=== PATIENT | male | born 1955 | race Caucasian/White ===

== ENCOUNTER → 2017-01-19 | Outpatient (CLI) | payer MEDICARE, OTHER ==
[~2017-01-19] MED LIST: ASPI81TA90 PO; BYST10TA PO; ESCI20TA PO; MULTTAB4 PO; OMEP20CA3 PO; VITA-121 PO; ocean spray; tylenol PO
[2017-01-19 07:22] LABS: MEAN CORPUSCULAR HEMOGLOBIN 31.6 pg (27.0-33.0); MEAN CORPUSCULAR VOLUME 93.1 fl (80.0-96.0); RED CELL DISTRIBUTION WIDTH 12.7 % (11.5-14.5); WHITE BLOOD COUNT 9.3 K/mm3 (4.0-10.0)
[2017-01-19 07:58] LABS: ALBUMIN 3.5 GM/DL (3.2-5.2); ALBUMIN/GLOBULIN RATIO 1.03 (1.00-1.93); ALKALINE PHOSPHATASE 82 U/L (45-117); ALT/SGPT 49 U/L (12-78); ANION GAP 5 MEQ/L (8-16); AST/SGOT 26 U/L (15-37); BILIRUBIN,TOTAL 0.6 MG/DL (0.2-1.0); BLOOD UREA NITROGEN 13 MG/DL (7-18); CALCIUM LEVEL 8.4 MG/DL (8.8-10.2); CARBON DIOXIDE LEVEL 30 MEQ/L (21-32); CHLORIDE LEVEL 104 MEQ/L (98-107); CHOLESTEROL LEVEL 183 MG/DL (<200); CREATININE FOR GFR 1.08 MG/DL (0.70-1.30); GLOMERULAR FILTRATION RATE > 60.0 (>49); GLUCOSE, FASTING 116 MG/DL (80-110); POTASSIUM SERUM 4.2 MEQ/L (3.5-5.1); SODIUM LEVEL 139 MEQ/L (136-145); TOTAL PROTEIN 6.9 GM/DL (6.4-8.2); TRIGLYCERIDES LEVEL 239 MG/DL (<150)
--- NOTE | 2017-01-19 09:50 | REP ---
CHEST X-RAY: Two views. HISTORY: Hypertension. Fatigue. BPH. COMPARISON STUDY: April 10, 2015. FINDINGS: There is a small zone of linear fibrosis in the left base. The lung richardson are otherwise clear. Pleural angles are sharp. Heart size is normal. Pulmonary vasculature is not increased. No significant bony abnormality. IMPRESSION: No active cardiopulmonary disease. Minimal linear fibrosis left base. Signed by Andrew Trejo MD 01/19/2017 12:17 P
--- NOTE | 2017-01-19 12:54 | ECGEPIP ---
Stationary ECG Study 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
== END ==
LOC: M LAB 06:47
PROVIDERS: ATTEND Family Medicine
DX: I10 Essential (primary) hypertension (principal); R53.83 Other fatigue; N40.1 Benign prostatic hyperplasia with lower urinary tract symptoms

== ENCOUNTER → 2017-01-26 | Outpatient (CLI) | payer MEDICARE, OTHER ==
[~2017-01-26] MED LIST changes: +E-Z-GAS II EFFERVESCENT PACKET (SODIUM BICARB./CITRIC ACID/SIMETHICONE) As Ordered ONE; +E-Z-HD 98% w/w 340GM SUSP BTL As Ordered ONE; +E-Z-PAQUE 96% w/w SUSP 176GM BTL As Ordered ONE
--- NOTE | 2017-01-26 17:49 | REP ---
UPPER GI, AIR CONTRAST: The procedure was performed under the direct supervision of Dr. Trejo. The images were reviewed with Dr. Trejo. The stream control officer film shows no organomegaly or pathological masses. The intestinal gas pattern is nonspecific. There are prostate seeds identified. There are surgical clips and bowel sutures in the right abdomen consistent with the patient's history of colon resection. Liquid barium and gas-producing granules were given in the erect position as well as liquid barium in the prone oblique position in order to perform a double-contrast upper GI examination. The oral and pharyngeal stage of deglutition are unremarkable. Esophageal transport is prompt and efficient and there is no esophagitis, stricture, mucosal ring, or hiatal hernia. Gastroesophageal reflux is not demonstrated on this examination. The stomach jamison are normally outlined. The rugal folds are smooth and regular. There is no gastritis, neoplasm, or ulcer disease. The duodenal jamison are normally outlined. The mucosal folds are smooth and regular. There is no duodenitis, pancreatitis, peptic ulcer disease, or neoplasm. The visualized portion of the proximal small bowel appears normal in course and caliber. IMPRESSION: Essentially unremarkable double contrast upper GI examination. 2 minutes and 13 seconds of fluoroscopic time was utilized for this procedure. Reviewed by RYLEE Odell 01/27/2017 10:21 AEdited and Signed by Andrew Trejo MD 01/27/2017 05:05 P
== END ==
LOC: M RAD 08:44
PROVIDERS: ATTEND Family Medicine
DX: R10.9 Unspecified abdominal pain (principal)

== ENCOUNTER 2017-05-25 11:15 | Outpatient (CLI) | payer MEDICARE, OTHER ==
[~2017-05-25] VITALS: Ht 180.3 cm; Wt 113.4 kg
[~2017-05-25 11:15] MED LIST changes: +DOXA1TAB71 PO; -E-Z-GAS II EFFERVESCENT PACKET (SODIUM BICARB./CITRIC ACID/SIMETHICONE) As Ordered ONE; -E-Z-HD 98% w/w 340GM SUSP BTL As Ordered ONE; -E-Z-PAQUE 96% w/w SUSP 176GM BTL As Ordered ONE; +NS 1,000 ML IV ONE; +PANT40TA2 PO
--- NOTE | 2017-05-25 13:33 | ROOR ---
Patient Name: Jackson Dean Procedure Date: 05/25/2017 1:16 PM Date of : 1955 Age: 61 Room: [facility] Gender: Male Note Status: Finalized Procedure: Upper Endoscopy + Biopsies Indications: Heartburn, Exclusion of Newell's esophagus, Follow-up of Newell's esophagus Providers: Bandar Castillo MD Referring MD: MARCK JONES MD Requesting Provider: Medicines: Monitored Anesthesia Care Complications: No immediate complications. Procedure: Pre-Anesthesia Assessment: - The heart rate, respiratory rate, oxygen saturations, blood pressure, adequacy of pulmonary ventilation, and response to care were monitored throughout the procedure. The Endoscope was introduced through the mouth, and advanced to the second part of duodenum. The upper GI endoscopy was accomplished without difficulty. The patient tolerated the procedure well. Findings: The Z-line was irregular and was found 40 cm from the incisors. A small hiatal hernia was present. Multiple biopsies were obtained with cold forceps for evaluation to rule out Newell's Esophagus at the gastroesophageal junction. No other significant abnormalities were identified in a careful examination of the stomach. The exam of the duodenum was otherwise normal. Impression: - Z-line irregular, 40 cm from the incisors. - Small hiatal hernia. - Biopsy performed in the gastroesophageal junction. - The examination was otherwise normal. Recommendation: - Patient has a contact number available for emergencies. The signs and symptoms of potential delayed complications were discussed with the patient. Return to normal activities tomorrow. Written discharge instructions were provided to the patient. - High fiber diet. - Discharge patient to home. - Follow an antireflux regimen. - Continue present medications. - Await pathology results. - Telephone GI clinic for pathology results in 1 week. - Return to referring physician. - The findings and recommendations were discussed with the patient's family. Bandar Castillo MD Bandar Castillo MD 05/25/2017 1:33:42 PM This report has been signed electronically. Number of Addenda: 0 Note Initiated On: 05/25/2017 1:16 PM Estimated Blood Loss: Estimated blood loss: none.
--- NOTE | 2017-05-25 13:50 | ROOR ---
Patient Name: Jackson Dean Procedure Date: 05/25/2017 1:17 PM Date of : 1955 Age: 61 Room: [facility] Gender: Male Note Status: Finalized Procedure: Total Colonoscopy to Anastomosis + Biopsy Polypectomy Indications: High risk colon cancer surveillance: Personal history of colonic polyps Providers: Bandar Castillo MD Referring MD: MARCK JONES MD Requesting Provider: Medicines: Monitored Anesthesia Care Complications: No immediate complications. Procedure: Pre-Anesthesia Assessment: - The heart rate, respiratory rate, oxygen saturations, blood pressure, adequacy of pulmonary ventilation, and response to care were monitored throughout the procedure. The Colonoscope was introduced through the anus and advanced to the ileocolonic anastomosis. The colonoscopy was performed without difficulty. The patient tolerated the procedure well. The quality of the bowel preparation was good. Findings: The perianal and digital rectal examinations were normal. Non-bleeding internal hemorrhoids were found during retroflexion. The hemorrhoids were small and Grade I (internal hemorrhoids that do not prolapse). A small polyp was found at 60 cm proximal to the anus. The polyp was sessile. The polyp was removed with a jumbo cold forceps. Resection and retrieval were complete. There was evidence of a prior end-to-side ileo-colonic anastomosis at the hepatic flexure. This was patent and was characterized by healthy appearing mucosa. The anastomosis was traversed. The exam was otherwise without abnormality. Impression: - Non-bleeding internal hemorrhoids. - One small polyp at 60 cm proximal to the anus, removed with a jumbo cold forceps. Resected and retrieved. - Patent end-to-side ileo-colonic anastomosis, characterized by healthy appearing mucosa. - The examination was otherwise normal. Recommendation: - Patient has a contact number available for emergencies. The signs and symptoms of potential delayed complications were discussed with the patient. Return to normal activities tomorrow. Written discharge instructions were provided to the patient. - Discharge patient to home. - Continue present medications. - Await pathology results. - Telephone GI clinic for pathology results in 1 week. - Repeat colonoscopy in 5 years for surveillance based on pathology results. - Return to referring physician. - The findings and recommendations were discussed with the patient's family. Bandar Castillo MD Bandar Castillo MD 05/25/2017 1:49:45 PM This report has been signed electronically. Number of Addenda: 0 Note Initiated On: 05/25/2017 1:17 PM Estimated Blood Loss: Estimated blood loss: none.
[2017-05-25 14:20] VITALS: BP 154/82
== END 2017-05-25 14:31 | disposition home or self-care (01) ==
LOC: M OPP 11:15
PROVIDERS: ATTEND Internal Medicine Gastroenterology
DX: Z12.11 Encounter for screening for malignant neoplasm of colon (principal); D37.4 Neoplasm of uncertain behavior of colon; Z86.010 Personal history of colon polyps; D12.4 Benign neoplasm of descending colon; K64.0 First degree hemorrhoids; Z98.0 Intestinal bypass and anastomosis status; R12 Heartburn; K22.70 Barrett's esophagus without dysplasia; K22.8 Other specified diseases of esophagus; K44.9 Diaphragmatic hernia without obstruction or gangrene; K29.70 Gastritis, unspecified, without bleeding; I10 Essential (primary) hypertension; Z87.19 Personal history of other diseases of the digestive system; M19.90 Unspecified osteoarthritis, unspecified site; M54.2 Cervicalgia; M54.89 Other dorsalgia; F41.9 Anxiety disorder, unspecified; Z85.46 Personal history of malignant neoplasm of prostate; Z92.3 Personal history of irradiation; Z92.21 Personal history of antineoplastic chemotherapy; G47.30 Sleep apnea, unspecified; R06.83 Snoring; R33.9 Retention of urine, unspecified; Z88.0 Allergy status to penicillin; Z79.899 Other long term (current) drug therapy

== ENCOUNTER → 2017-12-31 | Outpatient (CLI) | payer MEDICARE, OTHER ==
[2017-12-31 16:44] LABS: BASO # 0.1 10^3/uL (0.0-0.2); BASO % 0.8 % (0.0-1.0); EOS # 0.3 10^3/uL (0.0-0.50); EOS % 3.5 % (0.0-3.0); HEMATOCRIT 49.1 % (42.0-52.0); HEMOGLOBIN 16.8 g/dl (13.5-17.5); IMMATURE GRANULOCYTE % 0.2 % (0-3.0); LYMPH # 3.1 10^3/uL (1.5-4.5); LYMPH % 34.9 % (24.0-44.0); MEAN CORPUSCULAR HEMOGLOBIN 30.3 pg (27.0-33.0); MEAN CORPUSCULAR HGB CONC 34.2 g/dl (32.0-36.5); MEAN CORPUSCULAR VOLUME 88.5 fl (80.0-96.0); MONO # 0.7 10^3/uL (0.0-0.8); MONO % 7.4 % (0.0-5.0); NEUTROPHILS # 4.7 10^3/uL (1.8-7.7); NEUTROPHILS % 53.2 % (36.0-66.0); PLATELET COUNT, AUTOMATED 273 10^3/uL (150-450); RED BLOOD COUNT 5.55 10^6/uL (4.30-6.10); RED CELL DISTRIBUTION WIDTH 13.1 % (11.5-14.5); WHITE BLOOD COUNT 8.9 10^3/uL (4.0-10.0)
[2017-12-31 17:28] LABS: ALBUMIN/GLOBULIN RATIO 1.14 (1.00-1.93); ALKALINE PHOSPHATASE 85 U/L (45-117); ALT/SGPT 54 U/L (12-78); ANION GAP 6 MEQ/L (8-16); AST/SGOT 29 U/L (7-37); BILIRUBIN,TOTAL 0.5 MG/DL (0.2-1.0); BLOOD UREA NITROGEN 14 MG/DL (7-18); CALCIUM LEVEL 9.4 MG/DL (8.8-10.2); CARBON DIOXIDE LEVEL 28 MEQ/L (21-32); CHLORIDE LEVEL 106 MEQ/L (98-107); CREATININE FOR GFR 0.96 MG/DL (0.70-1.30); GLOMERULAR FILTRATION RATE > 60.0 (>49); GLUCOSE, FASTING 97 MG/DL (70-100); POTASSIUM SERUM 5.1 MEQ/L (3.5-5.1); SODIUM LEVEL 140 MEQ/L (136-145); TOTAL PROTEIN 7.5 GM/DL (6.4-8.2)
== END ==
LOC: M WUC 14:06
DX: R53.83 Other fatigue (principal)
CPT/HCPCS: 84443

== ENCOUNTER → 2018-04-05 | Outpatient (CLI) | payer MEDICARE, OTHER ==
[2018-04-05 08:57] LABS: HEMATOCRIT 48.8 % (42.0-52.0); HEMOGLOBIN 16.7 g/dl (13.5-17.5); MEAN CORPUSCULAR HEMOGLOBIN 30.9 pg (27.0-33.0); MEAN CORPUSCULAR HGB CONC 34.2 g/dl (32.0-36.5); MEAN CORPUSCULAR VOLUME 90.2 fl (80.0-96.0); PLATELET COUNT, AUTOMATED 263 10^3/uL (150-450); RED BLOOD COUNT 5.41 10^6/uL (4.30-6.10); RED CELL DISTRIBUTION WIDTH 13.2 % (11.5-14.5); WHITE BLOOD COUNT 8.5 10^3/uL (4.0-10.0)
[2018-04-05 09:28] LABS: TOTAL 25(OH) VITAMIN D 33.7 NG/ML (30.0-100.0)
[2018-04-05 09:29] LABS: ALBUMIN 3.6 GM/DL (3.2-5.2); ALBUMIN/GLOBULIN RATIO 1.06 (1.00-1.93); ALKALINE PHOSPHATASE 72 U/L (45-117); ALT/SGPT 48 U/L (12-78); ANION GAP 6 MEQ/L (8-16); AST/SGOT 26 U/L (7-37); BILIRUBIN,TOTAL 0.6 MG/DL (0.2-1.0); BLOOD UREA NITROGEN 14 MG/DL (7-18); CALCIUM LEVEL 8.6 MG/DL (8.8-10.2); CARBON DIOXIDE LEVEL 30 MEQ/L (21-32); CHLORIDE LEVEL 107 MEQ/L (98-107); CHOLESTEROL LEVEL 182 MG/DL (<200); CREATININE FOR GFR 0.89 MG/DL (0.70-1.30); GLOMERULAR FILTRATION RATE > 60.0 (>49); GLUCOSE, FASTING 107 MG/DL (70-100); HDL CHOLESTEROL 52 MG/DL (>40); LDL CHOLESTEROL 107.6 MG/DL (<100); NON-HDL-C 130 MG/DL; POTASSIUM SERUM 4.6 MEQ/L (3.5-5.1); PROSTATIC SPECIFIC AG MONITOR < 0.01 NG/ML (< 4.0); SODIUM LEVEL 143 MEQ/L (136-145); TESTOSTERONE 405 NG/DL (241-827); TRIGLYCERIDES LEVEL 112 MG/DL (<150)
[2018-04-05 09:44] LABS: ESTIMATED AVERAGE GLUCOSE 108 MG/DL (60-110); HEMOGLOBIN A1c 5.4 %
== END ==
LOC: M WUC 08:05
DX: D64.9 Anemia, unspecified (principal); R53.83 Other fatigue; E03.9 Hypothyroidism, unspecified
CPT/HCPCS: 84403

== ENCOUNTER → 2018-09-13 | Outpatient (CLI) | payer MEDICARE, OTHER ==
[~2018-09-13] MED LIST changes: -DOXA1TAB71 PO; +DOXA2TAB3 PO; -NS 1,000 ML IV ONE; -PANT40TA2 PO; +PANT40TA3 PO
--- NOTE | 2018-09-13 09:40 | REP ---
LUMBAR SPINE, FIVE VIEWS: HISTORY: Back pain. There is no acute fracture or subluxation. The L3-4 through L5-S1 intervertebral discs are decreased in height. Vacuum phenomenon is present at the L4-5 level. These findings are consistent with disc degeneration. Osteophytes are present on L1-5. There is narrowing of the left L5-S1 facet joint. IMPRESSION: Degenerative change as described above. Electronically Signed by Chuy Sanchez MD 09/13/2018 09:53 A
--- NOTE | 2018-09-13 09:44 | REP ---
RIGHT KNEE, FIVE VIEWS: HISTORY: Pain. There is no acute fracture or dislocation. There is moderate narrowing of the lateral knee joint space. There is mild narrowing of the medial knee joint space and minimal narrowing of the patellofemoral joint space. Osteophytes are present on the femur, tibia and patella. A suprapatellar joint effusion is present. IMPRESSION: Degenerative change as described above. Electronically Signed by Chuy Sanchez MD 09/13/2018 09:52 A
== END ==
LOC: M WUC 08:53
PROVIDERS: ATTEND Physician Assistant
DX: M54.5 Low back pain (principal); M25.561 Pain in right knee

== ENCOUNTER → 2018-09-16 | Outpatient (REF) | payer MEDICARE, OTHER ==
[2018-09-16 15:58] LABS: BASO # 0.1 10^3/uL (0.0-0.2); BASO % 0.5 % (0.0-1.0); EOS # 0.3 10^3/uL (0.0-0.50); EOS % 2.6 % (0.0-3.0); HEMATOCRIT 51.1 % (42.0-52.0); HEMOGLOBIN 17.2 g/dl (13.5-17.5); LYMPH # 2.5 10^3/uL (1.5-4.5); MEAN CORPUSCULAR HEMOGLOBIN 30.3 pg (27.0-33.0); MEAN CORPUSCULAR HGB CONC 33.7 g/dl (32.0-36.5); MONO # 0.6 10^3/uL (0.0-0.8); MONO % 6.6 % (0.0-5.0); NEUTROPHILS # 6.1 10^3/uL (1.8-7.7); NEUTROPHILS % 64.1 % (36.0-66.0); PLATELET COUNT, AUTOMATED 358 10^3/uL (150-450); RED BLOOD COUNT 5.68 10^6/uL (4.30-6.10); WHITE BLOOD COUNT 9.5 10^3/uL (4.0-10.0)
[2018-09-16 16:18] LABS: RHEUMATOID FACTOR QUANT < 10.0 IU/ML (<15.0); URIC ACID 5.6 MG/DL (3.5-7.2)
[2018-09-16 16:26] LABS: ERYTHROCYTE SEDIMENTATION RATE 16 mm/hr (0-20)
[2018-09-19 00:06] LABS: ANTINUCLEAR ANTIBODIES DIRECT Negative (Negative); Lyme Disease IgG/IgM Antibodie <0.91 ISR (0.00-0.90); Lyme Disease IgM Ab Quantitati <0.80 index (0.00-0.79)
== END ==
LOC: M LABDRAW1 15:28
PROVIDERS: ATTEND Physician Assistant Surgical
DX: M17.11 Unilateral primary osteoarthritis, right knee (principal)

== ENCOUNTER → 2018-09-23 | Outpatient (CLI) | payer MEDICARE, OTHER ==
[2018-09-23 13:41] LABS: BASO # 0.1 10^3/uL (0.0-0.2); BASO % 0.6 % (0.0-1.0); EOS # 0.3 10^3/uL (0.0-0.50); EOS % 2.9 % (0.0-3.0); HEMATOCRIT 47.6 % (42.0-52.0); HEMOGLOBIN 15.9 g/dl (13.5-17.5); LYMPH # 2.4 10^3/uL (1.5-4.5); LYMPH % 19.9 % (24.0-44.0); MEAN CORPUSCULAR HEMOGLOBIN 29.6 pg (27.0-33.0); MEAN CORPUSCULAR HGB CONC 33.4 g/dl (32.0-36.5); MEAN CORPUSCULAR VOLUME 88.6 fl (80.0-96.0); MONO # 0.8 10^3/uL (0.0-0.8); MONO % 6.9 % (0.0-5.0); NEUTROPHILS # 8.2 10^3/uL (1.8-7.7); NEUTROPHILS % 69.4 % (36.0-66.0); PLATELET COUNT, AUTOMATED 369 10^3/uL (150-450); RED BLOOD COUNT 5.37 10^6/uL (4.30-6.10); WHITE BLOOD COUNT 11.9 10^3/uL (4.0-10.0)
[2018-09-23 13:48] LABS: ALBUMIN 3.5 GM/DL (3.2-5.2); ALT/SGPT 46 U/L (12-78); BILIRUBIN,TOTAL 0.4 MG/DL (0.2-1.0); BLOOD UREA NITROGEN 11 MG/DL (7-18); C REACTIVE PROTEIN QUANTITATIV 3.36 MG/DL (0.00-0.30); CARBON DIOXIDE LEVEL 27 MEQ/L (21-32); CHLORIDE LEVEL 100 MEQ/L (98-107); CREATININE FOR GFR 0.82 MG/DL (0.70-1.30); GLOMERULAR FILTRATION RATE > 60.0 (>49); GLUCOSE, FASTING 98 MG/DL (70-100); POTASSIUM SERUM 4.7 MEQ/L (3.5-5.1); RHEUMATOID FACTOR QUANT < 10.0 IU/ML (<15.0); SODIUM LEVEL 137 MEQ/L (136-145); TOTAL PROTEIN 6.9 GM/DL (6.4-8.2)
[2018-09-23 14:09] LABS: ERYTHROCYTE SEDIMENTATION RATE 32 mm/hr (0-20)
[2018-09-25 00:06] LABS: Lyme Disease IgG/IgM Antibodie <0.91 ISR (0.00-0.90); Lyme Disease IgM Ab Quantitati <0.80 index (0.00-0.79)
== END ==
LOC: M WUC 11:12
PROVIDERS: ATTEND Physician Assistant
DX: M25.519 Pain in unspecified shoulder (principal)

== ENCOUNTER → 2018-10-14 | Outpatient (REF) | payer MEDICARE, OTHER | LOC: M LABDRAW1 15:36 | PROVIDERS: ATTEND Physician Assistant Surgical | DX: M23.241 Derangement of anterior horn of lateral meniscus due to old tear or injury, right knee (principal) ==

== ENCOUNTER → 2018-10-18 | Outpatient (REF) | payer MEDICARE, OTHER ==
[2018-10-18 19:10] LABS: BLOOD UREA NITROGEN 15 MG/DL (7-18); CREATININE FOR GFR 0.82 MG/DL (0.70-1.30); GLOMERULAR FILTRATION RATE > 60.0 (>49)
== END ==
LOC: M LABDRAW1 12:33
PROVIDERS: ATTEND Physician Assistant Medical
DX: M25.511 Pain in right shoulder (principal)

== ENCOUNTER → 2018-10-27 | Outpatient (CLI) | payer MEDICARE, OTHER ==
[2018-10-27 08:27] LABS: HEMATOCRIT 42.5 % (42.0-52.0); HEMOGLOBIN 14.4 g/dl (13.5-17.5); MEAN CORPUSCULAR HEMOGLOBIN 29.3 pg (27.0-33.0); MEAN CORPUSCULAR HGB CONC 33.9 g/dl (32.0-36.5); MEAN CORPUSCULAR VOLUME 86.4 fl (80.0-96.0); PLATELET COUNT, AUTOMATED 404 10^3/uL (150-450); RED BLOOD COUNT 4.92 10^6/uL (4.30-6.10); WHITE BLOOD COUNT 13.6 10^3/uL (4.0-10.0)
[2018-10-27 08:52] LABS: ERYTHROCYTE SEDIMENTATION RATE 53 mm/hr (0-20)
[2018-10-27 09:00] LABS: HEMOGLOBIN A1c 6.4 %
[2018-10-27 09:07] LABS: ALBUMIN 3.1 GM/DL (3.2-5.2); ALT/SGPT 62 U/L (12-78); BILIRUBIN,TOTAL 0.6 MG/DL (0.2-1.0); BLOOD UREA NITROGEN 15 MG/DL (7-18); C REACTIVE PROTEIN QUANTITATIV 8.86 MG/DL (0.00-0.30); CALCIUM LEVEL 8.9 MG/DL (8.8-10.2); CARBON DIOXIDE LEVEL 29 MEQ/L (21-32); CHLORIDE LEVEL 100 MEQ/L (98-107); CHOLESTEROL LEVEL 133 MG/DL (<200); CREATININE FOR GFR 0.88 MG/DL (0.70-1.30); GLOMERULAR FILTRATION RATE > 60.0 (>49); GLUCOSE, FASTING 132 MG/DL (70-100); HDL CHOLESTEROL 48 MG/DL (>40); LDL CHOLESTEROL 73 MG/DL (<100); NON-HDL-C 85 MG/DL; POTASSIUM SERUM 4.7 MEQ/L (3.5-5.1); PROSTATIC SPECIFIC AG MONITOR < 0.01 NG/ML (< 4.00); RHEUMATOID FACTOR QUANT < 10.0 IU/ML (<15.0); SODIUM LEVEL 135 MEQ/L (136-145); TOTAL PROTEIN 6.8 GM/DL (6.4-8.2); TRIGLYCERIDES LEVEL 61 MG/DL (<150); URIC ACID 5.4 MG/DL (3.5-7.2)
--- NOTE | 2018-10-27 09:51 | REP ---
Chest two views HISTORY: Hypertension Comparison: 01/19/2017 There is elevation of the hemidiaphragm. Linear density is present in the left lower lobe consistent with scar. The right lung is clear. The heart is normal in size. The pulmonary vasculature is normal in appearance. The bony structure is intact. IMPRESSION: No acute disease. Electronically Signed by Chuy Sanchez MD 10/27/2018 09:42 A
--- NOTE | 2018-10-27 22:28 | ECGEPIP ---
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 Electronically Signed On 10-27-2018 22:27:54 EST by Jluis Sauer
[2018-10-29 00:08] LABS: ANTINUCLEAR ANTIBODIES DIRECT Negative (Negative); Lyme Disease IgG/IgM Antibodie <0.91 ISR (0.00-0.90); Lyme Disease IgM Ab Quantitati <0.80 index (0.00-0.79)
== END ==
LOC: M LAB 07:19
PROVIDERS: ATTEND Family Medicine
DX: I10 Essential (primary) hypertension (principal); R53.83 Other fatigue; N40.0 Benign prostatic hyperplasia without lower urinary tract symptoms; E03.9 Hypothyroidism, unspecified

== ENCOUNTER → 2018-11-15 | Outpatient (REF) | payer MEDICARE, OTHER | LOC: M LABDRAW1 15:28 | PROVIDERS: ATTEND Physician Assistant | DX: M47.896 Other spondylosis, lumbar region (principal) ==

== ENCOUNTER → 2018-11-29 | Outpatient (REF) | payer MEDICARE, OTHER | LOC: M LABDRAW1 12:40 | PROVIDERS: ATTEND Physician Assistant Surgical | DX: M17.11 Unilateral primary osteoarthritis, right knee (principal) ==

== ENCOUNTER 2020-03-27 09:58 | Emergency (ER) | payer MEDICARE, OTHER ==
[~2020-03-27] VITALS: Ht 177.8 cm; Wt 118.2 kg
[~2020-03-27 09:58] MED LIST changes: +PANT40TA29 PO; -PANT40TA3 PO
[2020-03-27] MEDS ORDERED: MULTLIQ7 (10:08)
[2020-03-27] MEDS ORDERED: B VITAMIN (10:08)
[2020-03-27 11:25] LABS: BASO % 0.6 % (0.0-1.0); EOS # 0.2 10^3/uL (0.0-0.5); EOS % 2.2 % (0.0-3.0); HEMATOCRIT 51.2 % (42.0-52.0); HEMOGLOBIN 17.3 g/dl (13.5-17.5); LYMPH # 1.1 10^3/uL (1.5-5.0); LYMPH % 16.8 % (24.0-44.0); MEAN CORPUSCULAR HEMOGLOBIN 30.6 pg (27.0-33.0); MEAN CORPUSCULAR HGB CONC 33.8 g/dl (32.0-36.5); MEAN CORPUSCULAR VOLUME 90.5 fl (80.0-96.0); MONO # 0.3 10^3/uL (0.0-0.8); NEUTROPHILS # 5.1 10^3/uL (1.5-8.5); NEUTROPHILS % 75.1 % (36.0-66.0); PLATELET COUNT, AUTOMATED 192 10^3/uL (150-450); RED BLOOD COUNT 5.66 10^6/uL (4.30-6.10); WHITE BLOOD COUNT 6.8 10^3/uL (4.0-10.0)
[2020-03-27 12:32] LABS: ALBUMIN 3.7 GM/DL (3.2-5.2); ALT/SGPT 63 U/L (12-78); BILIRUBIN,DIRECT 0.2 MG/DL (0.0-0.2); BILIRUBIN,TOTAL 0.6 MG/DL (0.2-1.0); CK-MB VALUE MASS 3.7 NG/ML (<3.6); CPK CREATINE PHOSPHOKINASE 262 U/L (39-308); LIPASE 196 U/L (73-393); MB/CK RELATIVE INDEX 1.41 (< OR =4); TOTAL PROTEIN 7.9 GM/DL (6.4-8.2); TROPONIN I < 0.02 NG/ML (< 0.10)
--- NOTE | 2020-03-27 13:11 | REP ---
Clinical: Right upper quadrant pain. Technique: Real time lorenzo scale ultrasound examination using curved array transducer. Comparison: 01/01/2016. Findings: Liver includes 1.3 x 1.0 x 1.1 cm benign appearing cyst in the right lobe unchanged from prior examination along with increased parenchymal echotexture suggesting fatty infiltration. The pancreas is incompletely evaluated due to interposed bowel gas but visualized portions appear normal. The gallbladder is unremarkable. No biliary ductal dilatation is appreciated and the common bile duct measures 5 mm diameter. Right kidney is normal in reniform shape without hydronephrosis and measures 12.9 x 6.2 x 5.7 cm. No ascites. Impression: 1. Fatty infiltration to the liver and stable small benign hepatic cyst. Electronically Signed by Moustapha Joshi MD 03/27/2020 01:02 P
[2020-03-27] MEDS ORDERED: LISI10TA4 PO (14:09)
[2020-03-27] MEDS ORDERED: lisinopriL 10 MG TAB PO ONE (14:15)
[2020-03-27 14:27] VITALS: BP 177/91
[2020-03-27 14:36] VITALS: BP 177/91
--- NOTE | 2020-03-27 17:52 | ECGEPIP ---
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
[2020-03-28 18:08] LABS: Lyme Disease IgG/IgM Antibodie <0.91 ISR (0.00-0.90); Lyme Disease IgM Ab Quantitati <0.80 index (0.00-0.79)
== END 2020-03-27 14:38 | disposition home or self-care (01) ==
LOC: M ED 09:58
DX: I10 Essential (primary) hypertension (principal); R53.81 Other malaise; K22.70 Barrett's esophagus without dysplasia; Z79.899 Other long term (current) drug therapy; Z88.0 Allergy status to penicillin

== ENCOUNTER → 2020-04-12 | Outpatient (CLI) | payer MEDICARE, OTHER ==
[~2020-04-12] MED LIST changes: +B VITAMIN; +LISI10TA4 PO; +MULTLIQ7
--- NOTE | 2020-05-30 14:25 | ECGEPIP ---
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
[2020-06-07 14:52] LABS: HEMATOCRIT 48.7 % (42.0-52.0); HEMOGLOBIN 16.5 g/dl (13.5-17.5); MEAN CORPUSCULAR HEMOGLOBIN 30.9 pg (27.0-33.0); MEAN CORPUSCULAR HGB CONC 33.9 g/dl (32.0-36.5); MEAN CORPUSCULAR VOLUME 91.2 fl (80.0-96.0); PLATELET COUNT, AUTOMATED 388 10^3/uL (150-450); RED BLOOD COUNT 5.34 10^6/uL (4.30-6.10)
[2020-06-09 15:48] LABS: ALBUMIN 3.6 GM/DL (3.2-5.2); ALT/SGPT 89 U/L (12-78); BILIRUBIN,TOTAL 0.6 MG/DL (0.2-1.0); BLOOD UREA NITROGEN 16 MG/DL (7-18); CALCIUM LEVEL 9.1 MG/DL (8.8-10.2); CARBON DIOXIDE LEVEL 29 MEQ/L (21-32); CHLORIDE LEVEL 107 MEQ/L (98-107); CHOLESTEROL LEVEL 171 MG/DL (<200); CHOLESTEROL RISK RATIO 3.638 (<5); GLOMERULAR FILTRATION RATE > 60.0 (>49); GLUCOSE, FASTING 102 MG/DL (70-100); HDL CHOLESTEROL 47 MG/DL (>40); HEMOGLOBIN A1c 5.7 %; LDL CHOLESTEROL 93 MG/DL (<100); NON-HDL-C 124 MG/DL; POTASSIUM SERUM 4.6 MEQ/L (3.5-5.1); SODIUM LEVEL 139 MEQ/L (136-145); TOTAL PROTEIN 7.3 GM/DL (6.4-8.2); TRIGLYCERIDES LEVEL 155 MG/DL (<150)
== END ==
LOC: M LAB 07:20
PROVIDERS: ATTEND Family Medicine
DX: I10 Essential (primary) hypertension (principal); R53.83 Other fatigue; E03.9 Hypothyroidism, unspecified; N40.0 Benign prostatic hyperplasia without lower urinary tract symptoms; Z79.899 Other long term (current) drug therapy
CPT/HCPCS: 36415; 71046; 80053; 80061; 83036; 84403; 84443; 85027; 93005; G0103

== ENCOUNTER → 2020-10-05 | Outpatient (CLI) | payer MEDICARE, OTHER ==
[~2020-10-05] MED LIST changes: +CENT1TAB2 PO; +ESOM1CAP5 PO; +SUCR1TA PO; +VITA-243 PO; +VITAD400CA PO; +ZINC1TAB2 PO
== END ==
LOC: M LABSMTC 11:48
PROVIDERS: ATTEND Anesthesiology
DX: Z01.812 Encounter for preprocedural laboratory examination (principal); Z20.822 Contact with and (suspected) exposure to COVID-19

== ENCOUNTER 2020-10-10 07:22 | Day surgery (SDC) | payer MEDICARE, OTHER ==
[~2020-10-10] VITALS: Ht 177.8 cm; Wt 126.6 kg
[~2020-10-10 07:22] MED LIST changes: +NS 1,000 ML IV ONE
--- OUTSIDE RECORDS SUMMARY | 2020-10-10 07:27 | CCD | Continuity of Care Document ---
Author Author Jackson CASTILLO M.D. Organization Unknown Address [address] [place] [address] Phone [phone] Care Team Providers Care Mixing Tumbler Operator Name Role Phone Erika Weinstein M.D. AUTM [phone] Problems Active Problems Provider Date Newell's esophagus Bandar Castillo M.D. 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 Onset: 07/15/2013 Right upper quadrant pain Bandar Castillo M.D. Onset: Gastrointestinal tract finding Bandar Castillo M.D. Onse t: 05/20/2013 Essential hypertension Bandar Castillo M.D. Onset: 05/20 Social History Type Date Description Comments Sex Unknown ETOH Use Consumes 7 beers per week Tobacco Use Start: Unknown Patient has never smoked Allergies, Adverse Reactions, Alerts Active Allergies Reaction Severity Comments Date Penicillin 05/20/2013 Medications Active Medications SIG Qnty Indications Ordering Provide r Date Sutab [id number] Tablets as directed 1box Bandar Castillo M.D. 09/27/2020 Esomeprazole Magnesium 40mg Capsul es DR Take One Capsule By Mouth Every Day Unknown Sucralfate 1gm Tablets Take One Tablet By Mouth Three Times A Day Unknown Immunizations Description No Information Available Vital Signs Date Vital Result Comment 09/27/2020 3:08pm Height 71 inches 5'11" Weight 280.00 lb BP Systolic 138 mmHg BP Diastolic 86 mmHg Heart Rate 64 /min BMI (Body Mass Index) 39.0 kg/m2 Weight 127.008 kg Body Temperature 97.3 F 05/05/2017 2:51pm Height 71 inches 5'11" Weight 254.00 lb BP Systolic 160 mmHg BP Diastolic 97 mmHg Heart Rate 90 /min BMI (Body Mass Index) 35.4 kg/m2 Weight 115.214 kg Results Description No Information Available Procedures Description No Information Available Medical Devices Description No Information Available Encounters Type Date Location Provider Dx Diagnosis Office Visit 09/27/2020 3:00p Main Office Bandar Castillo M.D. Z 86.010 Personal history of colonic polyps R12 Heartburn Assessments Date Code Description Provider 09/27/2020 Z86.010 Personal history of colonic poly ps Bandar Castillo M.D. 09/27/2020 R12 Heartburn Bandar álvarez M.D. Plan of Treatment Future Appointment(s):* 10/10/2020 11:30 am - Bandar Castillo M.D. at Main Office 09/27/2020 - Bandar Castillo M.D.* Z86.010 Personal history of colonic polyps* Comments:* 64 yo wm who presents for a colonoscopy/egd. Pt had colonic polyps, and heartburn. Last scope was in 2017. No c/o abdominal pain, weight loss, change in bowel habits, or rectal bleeding. No family h/o colon cancer. No h/o chest pain, or sob. Plan:1. Colonoscopy + egd.2. Informed consent. * R12 Heartburn* Comments:* Schedule EGD.Informed consent given. Functional Status Description No Information Available Mental Status Description No Information Available Referrals Description No Information Available
--- OUTSIDE RECORDS SUMMARY | 2020-10-10 07:27 | CCD ---
Author Author [facility] Organization [facility] Address Unknown Phone Unavailable Care Team Providers Care Mail Processing Associate Name Role Phone Ilia Castillo MD Unavailable Unavailable Ilia Castillo MD Unavailable Unavailable Ilia Castillo MD Unavailable Unavailable Ilia Castillo MD Unavailable Unavailable Ilia Castillo MD Unavailable Unavailable Ilia Castillo MD Unavailable Unavailable Ilia Castillo MD Unavailable Unavailable Ilia Castillo MD Unavailable Unavailable Ilia Castillo MD Unavailable Unavailable Ilia Castillo MD Unavailable Unavailable Ilia Castillo MD Unavailable Unavailable Ilia Castillo MD Unavailable Unavailable Ilia Castillo MD Unavailable Unavailable Ilia Castillo MD Unavailable Unavailable Ilia Castillo MD Unavailable Unavailable Ilia Castillo MD Unavailable Unavailable Ilia Castillo MD Unavailable Unavailable Ilia Castillo MD Unavailable Unavailable Ilia Castillo MD Unavailable Unavailable Ilia Castillo MD Unavailable Unavailable Ilia Castillo MD Unavailable Unavailable Ilia Castillo MD Unavailable Unavailable Ilia Castillo MD Unavailable Unavailable Ilia Castillo MD Unavailable Unavailable Ilia Castillo MD Unavailable Unavailable Ilia Castillo MD Unavailable Unavailable Ilia Castillo MD Unavailable Unavailable Ilia Castillo MD Unavailable Unavailable Ilia Castillo MD Unavailable Unavailable Ilia Castillo MD Unavailable Unavailable Jonathan, S Bandar MD Unavailable Unavailable Jonathan, S Bandar MD Unavailable Unavailable Jonathan, S Bandar MD Unavailable Unavailable Jonathan, S Bandar MD Unavailable Unavailable Jonathan, S Bandar MD Unavailable Unavailable Jonathan, S Bandar MD Unavailable Unavailable Jonathan, S Bandar MD Unavailable Unavailable Jonathan, S Bandar MD Unavailable Unavailable Jonathan, S Bandar MD Unavailable Unavailable Jonathan, S Bandar MD Unavailable Unavailable Jonathan, S Bandar MD Unavailable Unavailable Jonathan, S Bandar MD Unavailable Unavailable Jonathan, S Bandar MD Unavailable Unavailable Jonathan, S Bandar MD Unavailable Unavailable Jonathan, S Bandar MD Unavailable Unavailable Jonathan, S Bandar MD Unavailable Unavailable Jonathan, S Bandar MD Unavailable Unavailable Jonathan, S Bandar MD Unavailable Unavailable Jonathan, S Bandar MD Unavailable Unavailable Re-disclosure Warning The records that you are about to access may contain information from federally-assisted alcohol or drug abuse programs. If such information is present, then the following federally mandated warning applies: This information has been disclosed to you from records protected by federal confidentiality rules (42 CFR part 2). The federal rules prohibit you from making any further disclosure of this information unless further disclosure is expressly permitted by the written consent of the person to whom it pertains or as otherwise permitted by 42 CFR part 2. A general authorization for the release of medical or other information is NOT sufficient for this purpose. The Federal rules restrict any use of the information to criminally investigate or prosecute any alcohol or drug abuse patient.The records that you are about to access may contain highly sensitive health information, the redisclosure of which is protected by Article 27-F of the [facility] Public Health law. If you continue you may have access to information: Regarding HIV / AIDS; Provided by facilities licensed or operated by the [facility] Office of Mental Health; or Provided by the [facility] Office for People With Developmental Disabilities. If such information is present, then the following [facility] mandated warning applies: This information has been disclosed to you from confidential records which are protected by state law. State law prohibits you from making any further disclosure of this information without the specific written consent of the person to whom it pertains, or as otherwise permitted by law. Any unauthorized further disclosure in violation of state law may result in a fine or mcc sentence or both. A general authorization for the release of medical or other information is NOT sufficient authorization for further disc losure. Family History Family Member Name Family Member Gender Family Member Status Date o f Status Description Data Source(s) Unknown Male Problem [facility] ([facility]) Unknown Unknown Problem [facility] ([facility]) parents side Unknown Unknown Problem [facility] ([facility]) Encounters Encounter Providers Location Date Indications Data Source(s ) Outpatient Attender: Bandar Castillo MD Main Office 09/27/2020 02:00:00 PM EST [facility] ([facility]) Medications Medication Brand Name Start Date Product Form Dose Route Admi nistrative Instructions Pharmacy Instructions Status Indications Reaction Description Data Source(s) 1.479-0.188 gram 10/03/2020 12:00:00 AM EST tablet 24 USE DIRECTED USE DIRECTED SOLD: 10/03/2020 [facility] Sutab Sutab 09/27/2020 12:00:00 AM EST active [facility] ([facility]) 10 mg 04/26/2020 12:00:00 AM EDT tablet 30 TAKE ONE TABLET BY MOUTH EVERY DAY TAKE ONE TABLET BY MOUTH EVERY DAY SOLD: 04/27/2020 [facility] 10 mg 04/26/2020 12:00:00 AM EDT tablet 30 TAKE ONE TABLET BY MOUTH EVERY DAY TAKE ONE TABLET BY MOUTH EVERY DAY SOLD: 05/28/2020 [facility] 10 mg 04/26/2020 12:00:00 AM EDT tablet 30 TAKE ONE TABLET BY MOUTH EVERY DAY TAKE ONE TABLET BY MOUTH EVERY DAY SOLD: 06/30/2020 [facility] 100 mg 04/12/2020 12:00:00 AM EDT tablet 10 TAKE BY MOUTH DIRECTED MAXIMUM DAILY DOSE = 1 TABLET TAKE BY MOUTH DIRECTED MAXIMUM DAILY DOSE = 1 TABLET SOLD: 04/13/2020 [facility] Esomeprazole 40 MG Delayed Release Oral Capsule ESOMEPRAZOLE MAGNESIUM 04/11/2020 12:00:00 AM EDT capsule,delayed release(DR/EC) 30 TAKE ONE CAPSULE BY MOUTH EVERY DAY TAKE ONE CAPSULE BY MOUTH EVERY DAY SOLD: 04/12/2020 [facility] 50 mcg/actuation 04/11/2020 12:00:00 AM EDT spray,suspension 16 SPRAY ONE SPRAY IN EACH NOSTRIL TWICE A DAY SPRAY ONE SPRAY IN EACH NOSTRIL TWICE A DAY SOLD: 05/28/2020 [facility] Esomeprazole 40 MG Delayed Release Oral Capsule ESOMEPRAZOLE MAGNESIUM 04/11/2020 12:00:00 AM EDT capsule,delayed release(DR/EC) 30 TAKE ONE CAPSULE BY MOUTH EVERY DAY TAKE ONE CAPSULE BY MOUTH EVERY DAY SOLD: 06/30/2020 [facility] 1 gram 04/11/2020 12:00:00 AM EDT tablet 90 TAKE ONE TABLET BY MOUTH THREE TIMES A DAY TAKE ONE TABLET BY MOUTH THREE TIMES A DAY SOLD: 06/15/2020 [facility] 50 mcg/actuation 04/11/2020 12:00:00 AM EDT spray,suspension 16 SPRAY ONE SPRAY IN EACH NOSTRIL TWICE A DAY SPRAY ONE SPRAY IN EACH NOSTRIL TWICE A DAY SOLD: 04/12/2020 [facility] Esomeprazole 40 MG Delayed Release Oral Capsule ESOMEPRAZOLE MAGNESIUM 04/11/2020 12:00:00 AM EDT capsule,delayed release(DR/EC) 30 TAKE ONE CAPSULE BY MOUTH EVERY DAY TAKE ONE CAPSULE BY MOUTH EVERY DAY SOLD: 05/28/2020 [facility] 1 gram 04/11/2020 12:00:00 AM EDT tablet 90 TAKE ONE TABLET BY MOUTH THREE TIMES A DAY TAKE ONE TABLET BY MOUTH THREE TIMES A DAY SOLD: 04/12/2020 [facility] 10 mg 03/27/2020 12:00:00 AM EDT tablet 30 TAKE ONE TABLET BY MOUTH EVERY DAY TAKE ONE TABLET BY MOUTH EVERY DAY SOLD: 03/27/2020 [facility] Insurance Providers Payer name Policy type / Coverage type Policy ID Covered green party ID Covered green party's relationship to sepulveda Policy Sepulveda Plan Information R [facility] [id number] SP [id number] MEDICARE [id number] SP [id number] Umr (pr) Medigap Part B [id number] Self [id number] Medicare Dme Supplies Medigap Part B [id number] Self [id number] [place] [id number] Self [id number] Umr (pr) Medigap Part B [id number] Self [id number] Medicare Dme Supplies Medigap Part B [id number] Self [id number] [place] Primary [id number] Self [id number] Umr (pr) Medigap Part B [id number] Self [id number] Medicare Dme Supplies Medigap Part B [id number] Self [id number] [place] [id number] Self [id number] Umr (pr) Medigap Part B [id number] Self [id number] Medicare Dme Supplies Medigap Part B [id number] Self [id number] [place] [id number] Self [id number] Umr (pr) Medigap Part B [id number] Self [id number] Medicare Dme Supplies Medigap Part B [id number] Self [id number] [place] Primary [id number] Self [id number] Umr (pr) Medigap Part B [id number] Self [id number] Medicare Dme Supplies Medigap Part B [id number] Self [id number] [place] Primary [id number] Self [id number] UMR [facility] [id number] SP [id number] Umr (pr) Medigap Part B [id number] Self [id number] Medicare Dme Supplies Medigap Part B [id number] Self [id number] [place] Primary [id number] Self [id number] Umr (pr) Medigap Part B [id number] Self [id number] Medicare Dme Supplies Medigap Part B [id number] Self [id number] [place] Primary [id number] Self [id number] Umr (pr) Medigap Part B [id number] Self [id number] Medicare Dme Supplies Medigap Part B [id number] Self [id number] [place] Primary [id number] Self [id number] Umr (pr) Medigap Part B [id number] Self [id number] Medicare Dme Supplies Medigap Part B [id number] Self [id number] [place] Primary [id number] Self [id number] MEDICARE [id number] SP [id number] Umr (pr) Medigap Part B [id number] Self [id number] Medicare Dme Supplies Medigap Part B [id number] Self [id number] [place] Primary [id number] Self [id number] Umr (pr) Medigap Part B [id number] Self [id number] Medicare Dme Supplies Medigap Part B [id number] Self [id number] [place] Primary [id number] Self [id number] UMR O [id number] S [id number] MEDICARE C [id number] S [id number] Umr/Uhc/[employer] Medigap Part B [id number] Self [id number] Medicare [place] Gov't Serv[place] Medicare Primary [id number] Self [id number] [place] Medigap Part B [id number] Self [id number] Umr (pr) Medigap Part B [id number] Self [id number] [place] Primary [id number] Self [id number] Umr/[place] Medigap Part B [id number] Self [id number] [place] Gov[place] Serv[place] Medicare Primary [id number] Self [id number] Umr/[place]c/[employer] Medigap Part B [id number] Self [id number] [place] Gov[place] Medicare Primary [id number] Self [id number] MEDICARE [id number] SP [id number] A Medicare [place] Gov[place] Medicare Primary [id number] Self [id number] [place] Medigap Part B [id number] Self [id number] [employer] [id number] SP [id number] Medicare [place] Gov't Serv[place] Medicare Primary [id number] Self [id number] [place] Medigap Part B [id number] Self [id number] [place] Primary [id number] Self [id number] [place] [id number] SP [id number] Medicare [place] Gov't Serv[place] Medicare Primary [id number] Self [id number] MEDICARE [id number] SP [id number] A [place] Medigap Part B Self [place] Gov't Serv[place] Medicare Primary Self MEDICARE A [id number] Self [id number] A [employer] U [id number] Self [id number] MEDICARE P [id number] S [id number] A [id number] B [id number] Problems, Conditions, and Diagnoses Code Display Name Description Problem Type Effective Dates Data Source(s) [id number] Newell's esophagus Newell's esophagus Problem 0 09/27/2020 12:00:00 AM EST [facility] ([facility]) Results ID Date Data Source [id number] 10/05/2020 12:00:00 PM EST [facility] Name Value Range Interpretation Code Description Data Arabella rce(s) Supporting Document(s) SARS coronavirus 2 RNA Not Detected [facility] [place] This lab was ordered by [facility] and reported by [facility]. Procedure Vital Signs ID Date Data Source UNK Name Value Range Interpretation Code Description Data Source(s) Body temperature 97.3 [degF] 97.3 [degF] [facility] ([facility]) Body weight 127.008 kg 127.008 kg [facility] ([facility]) Body mass index (BMI) [Ratio] 39.0 kg/m2 39.0 k g/m2 [facility] ([facility]) Heart rate 64 /min 64 /min [facility] ([facility]) Diastolic blood pressure 86 mm[Hg] 86 mm[Hg] [facility] ([facility]) Systolic blood pressure 138 mm[Hg] 138 mm[Hg] M EDENT ([facility]) Body weight 280.00 [lb_av] 280.00 [lb_av] MEDEN T ([facility]) Body height 71 [in_i] 71 [in_i] [facility] 5'11"
[2020-10-10] MEDS ORDERED: LIDOCAINE 2% 100MG/5ML SDV (FOR ANES.) As Ordered ONE (08:54)
[2020-10-10] MEDS ORDERED: fentaNYL 100 MCG/2 ML INJECTION (J3010) As Ordered ONE (08:54)
[2020-10-10] MEDS ORDERED: propofoL 200 MG/20 ML VIAL As Ordered ONE ×2 (08:54→09:19)
--- NOTE | 2020-10-10 09:11 | ROOR ---
Patient Name: Jackson Dean Procedure Date: 10/10/2020 8:54 AM Date of : 1955 Age: 64 Room: [facility] Gender: Male Note Status: Finalized Procedure: Upper Endoscopy + Biopsies Indications: Heartburn, Exclusion of Newell's esophagus Providers: Bandar Castillo MD Referring MD: MARCK JONES MD Requesting Provider: Medicines: Monitored Anesthesia Care Complications: No immediate complications. Procedure: Pre-Anesthesia Assessment: - The heart rate, respiratory rate, oxygen saturations, blood pressure, adequacy of pulmonary ventilation, and response to care were monitored throughout the procedure. The Endoscope was introduced through the mouth, and advanced to the second part of duodenum. The upper GI endoscopy was accomplished without difficulty. The patient tolerated the procedure well. Findings: The Z-line was irregular and was found 40 cm from the incisors. Multiple biopsies were obtained with cold forceps for evaluation to rule out Newell's Esophagus randomly at the gastroesophageal junction. Localized moderate inflammation characterized by congestion (edema), erosions and erythema was found on the greater curvature of the stomach. Biopsies were taken with a cold forceps for Helicobacter pylori testing. The exam of the duodenum was otherwise normal. Impression: - Z-line irregular, 40 cm from the incisors. - Mucosal changes suspicious for gastritis. Biopsied. - Multiple biopsies were obtained at the gastroesophageal junction. - The examination was otherwise normal. Recommendation: - Patient has a contact number available for emergencies. The signs and symptoms of potential delayed complications were discussed with the patient. Return to normal activities tomorrow. Written discharge instructions were provided to the patient. - High fiber diet. - Discharge patient to home. - Follow an antireflux regimen. - Continue present medications. - Await pathology results. - Telephone GI clinic for pathology results in 1 week. - Return to referring physician. - The findings and recommendations were discussed with the patient. Procedure Code(s): --- Professional --- 90236, Esophagogastroduodenoscopy, flexible, transoral; with biopsy, single or multiple Diagnosis Code(s): --- Professional --- K22.8, Other specified diseases of esophagus K31.89, Other diseases of stomach and duodenum R12, Heartburn CPT copyright 2019 [employer]. All rights reserved. The codes documented in this report are preliminary and upon flight crew time clerk review may be revised to meet current compliance requirements. Bandar Castillo MD Bandar Castillo MD 10/10/2020 9:11:10 AM Electronically signed by Bandar Castillo MD Number of Addenda: 0 Note Initiated On: 10/10/2020 8:54 AM Estimated Blood Loss: Estimated blood loss: none.
--- NOTE | 2020-10-10 09:25 | ROOR ---
Patient Name: Jackson Daen Procedure Date: 10/10/2020 8:54 AM Date of : 1955 Age: 64 Room: [facility] Gender: Male Note Status: Finalized Procedure: Colonoscopy to Anastomosis Indications: High risk colon cancer surveillance: Personal history of colonic polyps, Last colonoscopy: 2016 Providers: Bandar Castillo MD Referring MD: MARCK JONES MD Requesting Provider: Medicines: Monitored Anesthesia Care Complications: No immediate complications. Procedure: Pre-Anesthesia Assessment: - The heart rate, respiratory rate, oxygen saturations, blood pressure, adequacy of pulmonary ventilation, and response to care were monitored throughout the procedure. The Colonoscope was introduced through the anus and advanced to the cecum, identified by appendiceal orifice and ileocecal valve. The colonoscopy was performed without difficulty. The patient tolerated the procedure well. The quality of the bowel preparation was excellent. Findings: The perianal and digital rectal examinations were normal. Non-bleeding internal hemorrhoids were found during retroflexion. The hemorrhoids were small and Grade I (internal hemorrhoids that do not prolapse). Multiple small and large-mouthed diverticula were found in the recto-sigmoid colon, sigmoid colon and descending colon. There was evidence of a prior end-to-side colo-colonic anastomosis at the hepatic flexure. This was patent and was characterized by healthy appearing mucosa. The exam was otherwise without abnormality on direct and retroflexion views. Impression: - Non-bleeding internal hemorrhoids. - Diverticulosis in the recto-sigmoid colon, in the sigmoid colon and in the descending colon. - Patent end-to-side colo-colonic anastomosis, characterized by healthy appearing mucosa. - The examination was otherwise normal on direct and retroflexion views. - No specimens collected. - The examination was otherwise normal. Recommendation: - Patient has a contact number available for emergencies. The signs and symptoms of potential delayed complications were discussed with the patient. Return to normal activities tomorrow. Written discharge instructions were provided to the patient. - High fiber diet. - Discharge patient to home. - Continue present medications. - Repeat colonoscopy in 5 years for surveillance. - Return to referring physician. - The findings and recommendations were discussed with the patient. Procedure Code(s): --- Professional --- G0105, Colorectal cancer screening; colonoscopy on individual at high risk Diagnosis Code(s): --- Professional --- Z86.010, Personal history of colonic polyps K64.0, First degree hemorrhoids Z98.0, Intestinal bypass and anastomosis status K57.30, Diverticulosis of large intestine without perforation or abscess without bleeding CPT copyright 2019 [employer]. All rights reserved. The codes documented in this report are preliminary and upon corn picker review may be revised to meet current compliance requirements. Bandar Castillo MD Bandar Castillo MD 10/10/2020 9:25:09 AM Electronically signed by Bandar Castillo MD Number of Addenda: 0 Note Initiated On: 10/10/2020 8:54 AM Estimated Blood Loss: Estimated blood loss: none.
[2020-10-10 09:40] VITALS: BP 144/85
== END 2020-10-10 09:52 | disposition home or self-care (01) ==
LOC: M OPP 07:22
PROVIDERS: ATTEND Internal Medicine Gastroenterology
DX: Z12.11 Encounter for screening for malignant neoplasm of colon (principal); Z86.010 Personal history of colon polyps; R12 Heartburn; K64.0 First degree hemorrhoids; K57.30 Diverticulosis of large intestine without perforation or abscess without bleeding; Z98.0 Intestinal bypass and anastomosis status; D13.0 Benign neoplasm of esophagus; D13.1 Benign neoplasm of stomach; K22.8 Other specified diseases of esophagus; K31.89 Other diseases of stomach and duodenum; M19.90 Unspecified osteoarthritis, unspecified site; F41.9 Anxiety disorder, unspecified; F32.9 Major depressive disorder, single episode, unspecified; G47.30 Sleep apnea, unspecified; Z85.46 Personal history of malignant neoplasm of prostate; Z92.3 Personal history of irradiation; Z88.0 Allergy status to penicillin; Z79.899 Other long term (current) drug therapy
CPT/HCPCS: 43239; 88305; G0105; J3010

== ENCOUNTER 2021-08-12 07:08 | Outpatient (CLI) | payer MEDICARE, OTHER ==
[~2021-08-12] VITALS: Ht 180.3 cm; Wt 113.4 kg
[~2021-08-12 07:08] MED LIST changes: +ALBUTEROL 90 MCG/ACT 8GM HFA INHALER INH PRN; +ALBUTEROL SULFATE 2.5 MG/0.5 ML INH NEB SOLN INH PRN; +EPINEPHrine INJ 1 MG/ML 1ML AMP IM PRN; +LISI10TA22 PO; -LISI10TA4 PO; -NS 1,000 ML IV ONE; +NS 1,000 ML IV SCH; +diphenhydrAMINE 50MG/ML VIAL (J1200) IV PRN; +methylPREDNISolone 125MG 2ML VIAL IV PRN
[2021-08-12] MEDS ORDERED: CASIRIVIMAB (REGN10933) 600 MG, IMDEVIMAB (REGN10987) 600 MG in NS 250 ML IV ONE (08:00)
[2021-08-12 08:15] VITALS: BP 148/92
[2021-08-12 08:45] VITALS: BP 174/95
[2021-08-12 09:15] VITALS: BP 160/77
[2021-08-12 10:15] VITALS: BP 161/95
== END 2021-08-12 10:15 | disposition home or self-care (01) ==
LOC: M OPCLI4PR 07:08
PROVIDERS: ATTEND Family Medicine
DX: U07.1 COVID-19 (principal); Z88.0 Allergy status to penicillin

== ENCOUNTER → 2022-07-16 | Outpatient (CLI) | payer MEDICARE, OTHER ==
[~2022-07-16] MED LIST changes: -ALBUTEROL 90 MCG/ACT 8GM HFA INHALER INH PRN; -ALBUTEROL SULFATE 2.5 MG/0.5 ML INH NEB SOLN INH PRN; -EPINEPHrine INJ 1 MG/ML 1ML AMP IM PRN; -NS 1,000 ML IV SCH; -diphenhydrAMINE 50MG/ML VIAL (J1200) IV PRN; -methylPREDNISolone 125MG 2ML VIAL IV PRN
[2022-07-16 08:46] LABS: HEMOGLOBIN 16.9 g/dl (13.5-17.5); MEAN CORPUSCULAR HEMOGLOBIN 30.7 pg (27.0-33.0); MEAN CORPUSCULAR HGB CONC 32.5 g/dl (32.0-36.5); MEAN CORPUSCULAR VOLUME 94.5 fl (80.0-96.0); PLATELET COUNT, AUTOMATED 251 10^3/uL (150-450); WHITE BLOOD COUNT 8.6 10^3/uL (4.0-10.0)
[2022-07-16 09:43] LABS: ALBUMIN 3.8 GM/DL (3.2-5.2); ALT/SGPT 53 U/L (12-78); BILIRUBIN,TOTAL 0.7 MG/DL (0.2-1.0); BLOOD UREA NITROGEN 18 MG/DL (7-18); CARBON DIOXIDE LEVEL 29 MEQ/L (21-32); CHLORIDE LEVEL 105 MEQ/L (98-107); CHOLESTEROL LEVEL 177 MG/DL (<200); CREATININE FOR GFR 1.07 MG/DL (0.70-1.30); GLOMERULAR FILTRATION RATE > 60.0 (>49); GLUCOSE, FASTING 111 MG/DL (70-100); HDL CHOLESTEROL 56 MG/DL (>40); LDL CHOLESTEROL 92 MG/DL (<100); NON-HDL-C 121 MG/DL; POTASSIUM SERUM 4.6 MEQ/L (3.5-5.1); PROSTATIC SPECIFIC AG MONITOR < 0.01 NG/ML (< 4.00); SODIUM LEVEL 141 MEQ/L (136-145); TOTAL PROTEIN 7.2 GM/DL (6.4-8.2); TRIGLYCERIDES LEVEL 147 MG/DL (<150)
[2022-07-16 09:50] LABS: HEMOGLOBIN A1c 5.4 %
[2022-07-16 11:15] LABS: TOTAL 25(OH) VITAMIN D 52.3 NG/ML (30.0-100.0)
[2022-07-16 11:16] LABS: TESTOSTERONE 378 NG/DL (241-827)
== END ==
LOC: M EKG 07:20
PROVIDERS: ATTEND Family Medicine
DX: R53.83 Other fatigue (principal); I10 Essential (primary) hypertension; R97.20 Elevated prostate specific antigen [PSA]

== ENCOUNTER 2023-07-16 07:18 | Inpatient (IN) | payer MEDICARE, OTHER ==
[~2023-07-16] VITALS: Ht 180.3 cm; Wt 125.9 kg
[2023-07-16] VITALS (34 sets, daily range): BP systolic 135–184; BP diastolic 63–104; TEMP 98–98.4; O2SAT 82–98
[~2023-07-16 07:18] MED LIST changes: -DOXA2TAB3 PO; +DOXA2TAB61 PO
[2023-07-16 07:59] LABS: BASO # 0.1 10^3/uL (0.0-0.2); BASO % 0.8 % (0.0-1.0); EOS # 0.3 10^3/uL (0.0-0.5); EOS % 3.3 % (0.0-3.0); HEMATOCRIT 48.9 % (42.0-52.0); LYMPH # 2.6 10^3/uL (1.5-5.0); MEAN CORPUSCULAR HEMOGLOBIN 31.9 pg (27.0-33.0); MEAN CORPUSCULAR HGB CONC 34.8 g/dl (32.0-36.5); MEAN CORPUSCULAR VOLUME 91.7 fl (80.0-96.0); MONO # 0.7 10^3/uL (0.0-0.8); MONO % 7.2 % (2.0-8.0); NEUTROPHILS # 5.6 10^3/uL (1.5-8.5); NEUTROPHILS % 60.4 % (36.0-66.0); PLATELET COUNT, AUTOMATED 241 10^3/uL (150-450); RED BLOOD COUNT 5.33 10^6/uL (4.30-6.10); WHITE BLOOD COUNT 9.3 10^3/uL (4.0-10.0)
[2023-07-16] MEDS ORDERED: ISOVUE-370 76% 100ML VIAL As Ordered ONE (08:03)
[2023-07-16 08:10] LABS: INR 1.01
[2023-07-16] MEDS: LABETALOL 100MG/20ML VIAL IV PRN ×2 (08:10→08:45)
[2023-07-16 08:11] LABS: PARTIAL THROMBOPLASTIN TIME 26.2 SECONDS (24.8-34.2)
[2023-07-16 08:32] LABS: CK-MB VALUE MASS 4.7 NG/ML (<3.6)
[2023-07-16 08:34] LABS: MB/CK RELATIVE INDEX 2.19 (< OR =4)
[2023-07-16] MEDS ORDERED: TENECTEPLASE 50 MG KIT (TNKase) IVP ONE ×2 (08:45→08:50)
[2023-07-16] MEDS ORDERED: LABETALOL HCL 200 MG in NS 160 ML IV SCH (08:50)
[2023-07-16] MEDS ORDERED: NO ITAB PO (09:02)
[2023-07-16] MEDS ORDERED: B COCAP4 PO (09:02)
[2023-07-16] MEDS ORDERED: ZINC220CA PO (09:02)
[2023-07-16 09:03] LABS: RSV AMPLIFICATION NEGATIVE (NEGATIVE)
[2023-07-16] MEDS ORDERED: HOME MED LIST COMPLETE! XX SCH (09:05)
[2023-07-16] MEDS: LABETALOL HCL 200 MG in NS 160 ML IV SCH ×2 (09:13→10:30)
[2023-07-16] MEDS ORDERED: ALBUTEROL SULFATE 2.5MG/0.5ML INH NEB SOLN NEB PRN (09:25)
[2023-07-16 09:33] LABS: CK-MB VALUE MASS 4.5 NG/ML (<3.6)
[2023-07-16 09:34] LABS: MB/CK RELATIVE INDEX 2.25 (< OR =4)
[2023-07-16 10:25] LABS: CHOLESTEROL RISK RATIO 3.5 (<5); HDL CHOLESTEROL 47.3 MG/DL (>40); LDL CHOLESTEROL 70.3 MG/DL (<100); NON-HDL-C 118.7 MG/DL
[2023-07-16] MEDS ORDERED: LABETALOL HCL 200 MG in D5W 160 ML IV SCH (11:00)
[2023-07-16] MEDS: ATORVASTATIN 20 MG TAB PO SCH (11:17)
[2023-07-16] MEDS: PANTOPRAZOLE 40MG VIAL IV SCH (11:17)
[2023-07-16] MEDS ORDERED: LORazepam 2 MG/ML 1ML VIAL IV STA (12:37)
[2023-07-16] MEDS ORDERED: SODIUM CHLORIDE 0.9% INJ 10 ML SYR IV ONE ×4 (14:00)
[2023-07-16] MEDS ORDERED: LABETALOL HCL IV SCH (15:00)
[2023-07-16] MEDS ORDERED: D5W IV SCH (15:00)
[2023-07-17] VITALS (28 sets, daily range): BP systolic 128–198; BP diastolic 65–93; TEMP 97.6–98.7; O2SAT 90–100
[2023-07-17 04:50] LABS: BASO % 0.5 % (0.0-1.0); EOS # 0.3 10^3/uL (0.0-0.5); EOS % 4.2 % (0.0-3.0); HEMATOCRIT 46.2 % (42.0-52.0); HEMOGLOBIN 15.7 g/dl (13.5-17.5); LYMPH % 24.9 % (24.0-44.0); MEAN CORPUSCULAR HEMOGLOBIN 31.7 pg (27.0-33.0); MEAN CORPUSCULAR VOLUME 93.1 fl (80.0-96.0); MONO # 0.6 10^3/uL (0.0-0.8); MONO % 7.3 % (2.0-8.0); NEUTROPHILS # 5.1 10^3/uL (1.5-8.5); NEUTROPHILS % 62.9 % (36.0-66.0); PLATELET COUNT, AUTOMATED 213 10^3/uL (150-450); RED BLOOD COUNT 4.96 10^6/uL (4.30-6.10); WHITE BLOOD COUNT 8.1 10^3/uL (4.0-10.0)
[2023-07-17 05:09] LABS: ALBUMIN 3.5 G/DL (3.2-5.2); ALKALINE PHOSPHATASE 71 U/L (46-116); ALT/SGPT 46 U/L (7.0-40); AST/SGOT 25 U/L (<34); BILIRUBIN,TOTAL 0.9 MG/DL (0.3-1.2); BLOOD UREA NITROGEN 11 MG/DL (9-23); CALCIUM LEVEL 8.5 MG/DL (8.3-10.6); CARBON DIOXIDE LEVEL 31 MMOL/L (20-31); CHLORIDE LEVEL 102 MMOL/L (98-107); CREATININE FOR GFR 0.83 MG/DL (0.70-1.30); GLOMERULAR FILTRATION RATE > 60.0 (>49); GLUCOSE, FASTING 114 MG/DL (74-106); MAGNESIUM LEVEL 2.2 MG/DL (1.8-2.4); PHOSPHORUS LEVEL 3.4 MG/DL (2.4-5.1); POTASSIUM SERUM 4.3 MMOL/L (3.5-5.1); SODIUM LEVEL 140 MMOL/L (136-145); TOTAL PROTEIN 6.5 G/DL (5.7-8.2)
[2023-07-17] MEDS: ASPIRIN 81MG CHEW TABLET PO SCH (08:07)
[2023-07-17] MEDS: PANTOPRAZOLE 40MG VIAL IV SCH (08:07)
[2023-07-17] MEDS: ATORVASTATIN 20 MG TAB PO SCH (08:08)
[2023-07-17] MEDS ORDERED: METOPROLOL TART 25 MG TABLET PO SCH (09:00)
[2023-07-17 10:41] LABS: THYROID STIMULATING HORMONE 2.735 uIU/ML (0.55-4.78)
[2023-07-17 11:15] LABS: HEMOGLOBIN A1c 5.3 % (4.0-6.0)
[2023-07-17] MEDS: CHLORTHALIDONE 25 MG TAB PO SCH (11:24)
[2023-07-17] MEDS: LOSARTAN 50MG TABLET PO SCH (11:24)
[2023-07-17 11:58] LABS: APPEARANCE, URINE CLEAR (CLEAR); BACTERIA, URINE AUTO NEGATIVE (NEGATIVE); BILIRUBIN, URINE AUTO NEGATIVE (NEGATIVE); BLOOD, URINE BLOOD NEGATIVE (NEGATIVE); COLOR, URINE YELLOW (YELLOW); GLUCOSE, URINE (UA) AUTO NEGATIVE (NEGATIVE); KETONE, URINE AUTO NEGATIVE (NEGATIVE); LEUKOCYTE ESTERASE, URINE AUTO NEGATIVE (NEGATIVE); NITRITE, URINE AUTO NEGATIVE (NEGATIVE); PROTEIN, URINE AUTO NEGATIVE (NEGATIVE); RBC, URINE AUTO 0 /HPF (0-3); SPECIFIC GRAVITY URINE AUTO 1.004 (1.002-1.035); SQUAMOUS EPITHELIAL CELL UR AU 0 /HPF (0-6); UROBILINOGEN, URINE AUTO 0.2 mg/dL (0.0-2.0); WBC, URINE AUTO 0 /HPF (0-3)
[2023-07-17 12:27] LABS: CREATININE,RANDOM URINE 38.6 MG/DL
[2023-07-17 12:31] LABS: TOTAL PROTEIN,RANDOM URINE < 6.0 MG/DL (0.0-14.0)
[2023-07-17] MEDS ORDERED: LORazepam 2 MG/ML 1ML VIAL IM STA (12:48)
[2023-07-17] MEDS ORDERED: LORazepam 2 MG/ML 1ML VIAL IV STA (13:12)
[2023-07-17] MEDS ORDERED: PROHANCE 279.3MG/ML 15ML VIAL As Ordered ONE (13:38)
[2023-07-17] MEDS ORDERED: PROHANCE 279.3MG/ML 5ML VIAL As Ordered ONE (13:38)
[2023-07-17] MEDS: HEPARIN SOD (PORCINE) 5000UNITS/ML 1ML VIAL/SYRINGE SQ SCH (23:14)
[2023-07-18] VITALS: BP 134/71; TEMP 98; O2SAT 95
[2023-07-18] MEDS: HEPARIN SOD (PORCINE) 5000UNITS/ML 1ML VIAL/SYRINGE SQ SCH (05:18)
[2023-07-18 05:20] VITALS: BP 153/79; TEMP 98.2; O2SAT 95
[2023-07-18 08:00] VITALS: BP 163/96; TEMP 98; O2SAT 96
[2023-07-18 08:13] LABS: BASO # 0.1 10^3/uL (0.0-0.2); BASO % 0.6 % (0.0-1.0); EOS # 0.3 10^3/uL (0.0-0.5); EOS % 3.6 % (0.0-3.0); HEMATOCRIT 49.6 % (42.0-52.0); HEMOGLOBIN 17.6 g/dl (13.5-17.5); LYMPH # 2.4 10^3/uL (1.5-5.0); LYMPH % 26.7 % (24.0-44.0); MEAN CORPUSCULAR HEMOGLOBIN 32.3 pg (27.0-33.0); MEAN CORPUSCULAR HGB CONC 35.5 g/dl (32.0-36.5); MONO # 0.6 10^3/uL (0.0-0.8); MONO % 6.2 % (2.0-8.0); NEUTROPHILS # 5.7 10^3/uL (1.5-8.5); NEUTROPHILS % 62.6 % (36.0-66.0); PLATELET COUNT, AUTOMATED 232 10^3/uL (150-450); RED BLOOD COUNT 5.45 10^6/uL (4.30-6.10); WHITE BLOOD COUNT 9.1 10^3/uL (4.0-10.0)
[2023-07-18 08:31] VITALS: BP 163/96
[2023-07-18] MEDS: CHLORTHALIDONE 25 MG TAB PO SCH (08:31)
[2023-07-18] MEDS: LOSARTAN 50MG TABLET PO SCH (08:31)
[2023-07-18] MEDS: ASPIRIN 81MG CHEW TABLET PO SCH (08:31)
[2023-07-18 08:40] LABS: BLOOD UREA NITROGEN 13 MG/DL (9-23); CARBON DIOXIDE LEVEL 26 MMOL/L (20-31); CHLORIDE LEVEL 100 MMOL/L (98-107); CREATININE FOR GFR 0.78 MG/DL (0.70-1.30); GLOMERULAR FILTRATION RATE > 60.0 (>49); GLUCOSE, FASTING 118 MG/DL (74-106); SODIUM LEVEL 137 MMOL/L (136-145)
[2023-07-18] MEDS ORDERED: PANTOPRAZOLE 40MG TAB (PROTONIX) PO SCH (09:00)
[2023-07-18] MEDS ORDERED: ENOXAPARIN 40MG/0.4ML SYRINGE (J1650 PER 10MG) SC SCH (09:00)
[2023-07-18] MEDS ORDERED: ATORVASTATIN 20 MG TAB PO SCH (09:00)
[2023-07-18 09:27] VITALS: BP 156/86
[2023-07-18 11:33] VITALS: BP 151/88
[2023-07-18] MEDS ORDERED: LOSA-528 PO (11:40)
[2023-07-18] MEDS ORDERED: CHLO25TA PO (11:40)
[2023-07-18] MEDS ORDERED: ATOR1TAB21 PO (11:40)
[2023-07-18] MEDS ORDERED: ASPI81CH8 PO (11:40)
[2023-07-18] MEDS ORDERED: [UNRECOGNIZED DRUG - CODE] XX (11:56)
== END 2023-07-18 12:42 | disposition home or self-care (01) | DRG 304 ==
LOC: M ED 07:18 → M ED INP 09:23 → ENRESERV 09:48 → M ICU 10:30
PROVIDERS: ADMIT Internal Medicine Critical Care Medicine; ATTEND Internal Medicine
PROC: B246ZZZ Ultrasonography of Right and Left Heart (ICD-10-PCS; principal; 2023-07-16)
PROC: 3E03017 Introduction of Other Thrombolytic into Peripheral Vein, Open Approach (ICD-10-PCS; 2023-07-16)
DX: I16.1 Hypertensive emergency (principal); I67.83 Posterior reversible encephalopathy syndrome; G45.9 Transient cerebral ischemic attack, unspecified; I10 Essential (primary) hypertension; E78.5 Hyperlipidemia, unspecified; G47.30 Sleep apnea, unspecified; R42 Dizziness and giddiness; E78.1 Pure hyperglyceridemia; Z88.0 Allergy status to penicillin; Z85.46 Personal history of malignant neoplasm of prostate; Z79.899 Other long term (current) drug therapy; Z90.49 Acquired absence of other specified parts of digestive tract

== ENCOUNTER 2023-07-21 09:54 | Observation (INO) | payer MEDICARE, OTHER ==
[~2023-07-21] VITALS: Ht 180.3 cm; Wt 127.8 kg
[~2023-07-21 09:54] MED LIST changes: +ASPI81CH8 PO; +ATOR1TAB21 PO; +B COCAP4 PO; +CHLO25TA PO; +LOSA-528 PO; +NO ITAB PO; +ZINC220CA PO; +[UNRECOGNIZED DRUG - CODE] XX
[2023-07-21 10:55] LABS: BASO # 0.1 10^3/uL (0.0-0.2); BASO % 0.5 % (0.0-1.0); EOS # 0.4 10^3/uL (0.0-0.5); EOS % 4.1 % (0.0-3.0); HEMATOCRIT 49.4 % (42.0-52.0); HEMOGLOBIN 17.1 g/dl (13.5-17.5); LYMPH # 2.8 10^3/uL (1.5-5.0); LYMPH % 28.5 % (24.0-44.0); MEAN CORPUSCULAR HEMOGLOBIN 31.8 pg (27.0-33.0); MEAN CORPUSCULAR HGB CONC 34.6 g/dl (32.0-36.5); MEAN CORPUSCULAR VOLUME 91.8 fl (80.0-96.0); MONO # 0.7 10^3/uL (0.0-0.8); MONO % 7.6 % (2.0-8.0); NEUTROPHILS # 5.7 10^3/uL (1.5-8.5); NEUTROPHILS % 58.8 % (36.0-66.0); PLATELET COUNT, AUTOMATED 260 10^3/uL (150-450); RED BLOOD COUNT 5.38 10^6/uL (4.30-6.10); WHITE BLOOD COUNT 9.7 10^3/uL (4.0-10.0)
[2023-07-21 11:17] LABS: ALBUMIN 3.7 G/DL (3.2-5.2); ALKALINE PHOSPHATASE 69 U/L (46-116); ALT/SGPT 77 U/L (7.0-40); AST/SGOT 38 U/L (<34); BILIRUBIN,DIRECT 0.2 MG/DL (<0.4); BILIRUBIN,TOTAL 0.4 MG/DL (0.3-1.2); BLOOD UREA NITROGEN 19 MG/DL (9-23); CALCIUM LEVEL 9.6 MG/DL (8.3-10.6); CARBON DIOXIDE LEVEL 32 MMOL/L (20-31); CHLORIDE LEVEL 101 MMOL/L (98-107); CK-MB VALUE MASS 3.8 NG/ML (<3.6); GLOMERULAR FILTRATION RATE > 60.0 (>49); GLUCOSE, FASTING 142 MG/DL (74-106); POTASSIUM SERUM 3.7 MMOL/L (3.5-5.1); SODIUM LEVEL 140 MMOL/L (136-145); TOTAL PROTEIN 6.6 G/DL (5.7-8.2)
[2023-07-21 11:19] LABS: THYROID STIMULATING HORMONE 1.666 uIU/ML (0.55-4.78)
[2023-07-21 11:45] LABS: CPK CREATINE PHOSPHOKINASE 270 U/L (46-171)
[2023-07-21] MEDS ORDERED: MECLIZINE 25 MG TABLET PO ONE (13:30)
[2023-07-21] MEDS ORDERED: LORazepam 2 MG/ML 1ML VIAL IV ONE (13:30)
[2023-07-21] MEDS ORDERED: ISOVUE-370 76% 100ML VIAL As Ordered ONE (14:06)
[2023-07-21 14:23] LABS: CK-MB VALUE MASS 3.5 NG/ML (<3.6)
[2023-07-21 14:24] LABS: MB/CK RELATIVE INDEX 1.43 (< OR =4)
[2023-07-21 15:56] LABS: MAGNESIUM LEVEL 1.8 MG/DL (1.8-2.4)
[2023-07-21] MEDS ORDERED: MED REC IN PROGRESS XX SCH (18:30)
[2023-07-21] MEDS ORDERED: ATOR1TAB21 PO (19:37)
[2023-07-21] MEDS ORDERED: LOSA50TA28 PO (19:37)
[2023-07-21] MEDS ORDERED: ASPI81CH33 PO (19:37)
[2023-07-21] MEDS ORDERED: CHLO50TA PO (19:37)
[2023-07-21] MEDS ORDERED: CHLO125TA PO (20:18)
[2023-07-21] MEDS ORDERED: HOME MED LIST COMPLETE! XX SCH (20:20)
[2023-07-21] MEDS: MECLIZINE 25 MG TABLET PO SCH (20:57)
[2023-07-22] MEDS: MECLIZINE 25 MG TABLET PO SCH ×3 (00:06→12:03)
[2023-07-22 07:47] LABS: HEMATOCRIT 51.1 % (42.0-52.0); HEMOGLOBIN 17.4 g/dl (13.5-17.5); MEAN CORPUSCULAR HEMOGLOBIN 31.8 pg (27.0-33.0); MEAN CORPUSCULAR HGB CONC 34.1 g/dl (32.0-36.5); MEAN CORPUSCULAR VOLUME 93.2 fl (80.0-96.0); PLATELET COUNT, AUTOMATED 249 10^3/uL (150-450); RED BLOOD COUNT 5.48 10^6/uL (4.30-6.10); WHITE BLOOD COUNT 9.6 10^3/uL (4.0-10.0)
[2023-07-22 08:11] LABS: BLOOD UREA NITROGEN 17 MG/DL (9-23); CALCIUM LEVEL 9.2 MG/DL (8.3-10.6); CARBON DIOXIDE LEVEL 34 MMOL/L (20-31); CHLORIDE LEVEL 97 MMOL/L (98-107); CREATININE FOR GFR 0.88 MG/DL (0.70-1.30); GLOMERULAR FILTRATION RATE > 60.0 (>49); GLUCOSE, FASTING 122 MG/DL (74-106); MAGNESIUM LEVEL 1.9 MG/DL (1.8-2.4); POTASSIUM SERUM 3.8 MMOL/L (3.5-5.1); SODIUM LEVEL 136 MMOL/L (136-145)
[2023-07-22 08:50] VITALS: BP 140/83
[2023-07-22] MEDS ORDERED: ENOXAPARIN 40MG/0.4ML SYRINGE (J1650 PER 10MG) SC SCH (09:00)
[2023-07-22] MEDS ORDERED: LOSARTAN 50MG TABLET PO SCH (09:00)
[2023-07-22] MEDS ORDERED: VITAMIN B COMPLEX/VIT C CAP PO SCH (09:00)
[2023-07-22] MEDS ORDERED: ZINC SULFATE 220 MG CAP PO SCH (09:00)
[2023-07-22] MEDS ORDERED: ASPIRIN 81MG CHEW TABLET PO SCH (09:00)
[2023-07-22] MEDS ORDERED: ATORVASTATIN 20 MG TAB PO SCH (09:00)
[2023-07-22] MEDS ORDERED: CHLORTHALIDONE 25 MG TAB PO SCH (09:00)
[2023-07-22] MEDS ORDERED: POTASSIUM CHLORIDE 10MEQ SR TABLET PO ONE (11:00)
[2023-07-22] MEDS ORDERED: MECL-86 PO (11:59)
[2023-07-22 15:24] VITALS: BP 147/89; TEMP 97.8; O2SAT 93
== END 2023-07-22 15:25 | disposition home or self-care (01) ==
LOC: M ED 09:54 → M ED INP 09:55
PROVIDERS: ADMIT Internal Medicine; ATTEND Internal Medicine
DX: R42 Dizziness and giddiness (principal); R94.31 Abnormal electrocardiogram [ECG] [EKG]; I10 Essential (primary) hypertension; E78.1 Pure hyperglyceridemia; R53.83 Other fatigue; I51.9 Heart disease, unspecified; Z88.0 Allergy status to penicillin; Z79.899 Other long term (current) drug therapy; Z79.82 Long term (current) use of aspirin; Z72.0 Tobacco use; Z83.3 Family history of diabetes mellitus; Z80.1 Family history of malignant neoplasm of trachea, bronchus and lung
CPT/HCPCS: 36415; 70450; 70496; 70498; 70544; 70551; 71045; 80047; 80048; 80076; 82550; 82553; 83605; 83735; 84443; 84484; 85025; 85027; 87040; 87486; 87581; 87633; 87798; 93005; 96372; 96374; 97116; 97161; 99285; G0378; J1650; J2060; Q9967

== ENCOUNTER → 2023-12-02 | Outpatient (CLI) | payer MEDICARE, OTHER ==
[~2023-12-02] MED LIST changes: +ASPI81CH33 PO; +CHLO125TA PO; +CHLO50TA PO; +LOSA50TA28 PO; +MECL-86 PO
[2023-12-02 07:50] LABS: HEMATOCRIT 45.7 % (42.0-52.0); HEMOGLOBIN 15.4 g/dl (13.5-17.5); MEAN CORPUSCULAR HEMOGLOBIN 31.2 pg (27.0-33.0); MEAN CORPUSCULAR HGB CONC 33.7 g/dl (32.0-36.5); MEAN CORPUSCULAR VOLUME 92.5 fl (80.0-96.0); PLATELET COUNT, AUTOMATED 250 10^3/uL (150-450); RED BLOOD COUNT 4.94 10^6/uL (4.30-6.10); WHITE BLOOD COUNT 9.7 10^3/uL (4.0-10.0)
[2023-12-02 08:09] LABS: ALBUMIN 3.4 G/DL (3.2-5.2); ALKALINE PHOSPHATASE 68 U/L (46-116); ALT/SGPT 43 U/L (7.0-40); AST/SGOT 19 U/L (<34); BILIRUBIN,TOTAL 0.5 MG/DL (0.3-1.2); BLOOD UREA NITROGEN 21 MG/DL (9-23); CALCIUM LEVEL 9.2 MG/DL (8.3-10.6); CARBON DIOXIDE LEVEL 31 MMOL/L (20-31); CHLORIDE LEVEL 105 MMOL/L (98-107); CHOLESTEROL LEVEL 163 MG/DL (<200); CHOLESTEROL RISK RATIO 3.79 (<5); CREATININE FOR GFR 1.01 MG/DL (0.70-1.30); GLOMERULAR FILTRATION RATE > 60.0 (>49); GLUCOSE, FASTING 117 MG/DL (74-106); LDL CHOLESTEROL 84.6 MG/DL (<100); POTASSIUM SERUM 4.4 MMOL/L (3.5-5.1); PROSTATIC SPECIFIC AG MONITOR 0.04 NG/ML (< 4.00); SODIUM LEVEL 141 MMOL/L (136-145); TOTAL PROTEIN 6.4 G/DL (5.7-8.2); TRIGLYCERIDES LEVEL 177 MG/DL (<150)
[2023-12-02 08:13] LABS: THYROID STIMULATING HORMONE 2.596 uIU/ML (0.55-4.78)
[2023-12-02 08:14] LABS: TESTOSTERONE 351 NG/DL (241-827)
[2023-12-02 09:42] LABS: HEMOGLOBIN A1c 5.8 % (4.0-6.0)
== END ==
LOC: M LAB 07:05
PROVIDERS: ATTEND Family Medicine
DX: E03.9 Hypothyroidism, unspecified (principal); I10 Essential (primary) hypertension; R53.83 Other fatigue; R97.20 Elevated prostate specific antigen [PSA]

== ENCOUNTER → 2023-12-17 | Outpatient (CLI) | payer MEDICARE, OTHER | LOC: M RAD 08:17 | PROVIDERS: ATTEND Family Medicine | DX: R10.13 Epigastric pain (principal) ==

== ENCOUNTER → 2024-05-24 | Outpatient (CLI) | payer MEDICARE, OTHER ==
[~2024-05-24] MED LIST changes: +ESOM1CAP20 PO; -ESOM1CAP5 PO
[2024-05-24 10:22] LABS: HEMATOCRIT 49.7 % (42.0-52.0); MEAN CORPUSCULAR HEMOGLOBIN 31.7 pg (27.0-33.0); MEAN CORPUSCULAR HGB CONC 34.2 g/dl (32.0-36.5); MEAN CORPUSCULAR VOLUME 92.7 fl (80.0-96.0); PLATELET COUNT, AUTOMATED 248 10^3/uL (150-450); RED BLOOD COUNT 5.36 10^6/uL (4.30-6.10); WHITE BLOOD COUNT 8.4 10^3/uL (4.0-10.0)
[2024-05-24 10:41] LABS: HEMOGLOBIN A1c 5.5 % (4.0-6.0)
[2024-05-24 10:51] LABS: INR 1.1; PROTHROMBIN TIME 13.9 SECONDS (12.5-14.5)
[2024-05-24 10:53] LABS: ALBUMIN 3.7 G/DL (3.2-5.2); ALKALINE PHOSPHATASE 68 U/L (46-116); ALT/SGPT 55 U/L (7.0-40); AST/SGOT 29 U/L (<34); BILIRUBIN,TOTAL 0.6 MG/DL (0.3-1.2); BLOOD UREA NITROGEN 20 MG/DL (9-23); CALCIUM LEVEL 8.8 MG/DL (8.3-10.6); CARBON DIOXIDE LEVEL 30 MMOL/L (20-31); CHLORIDE LEVEL 105 MMOL/L (98-107); CHOLESTEROL LEVEL 134 MG/DL (<200); CHOLESTEROL RISK RATIO 3.35 (<5); CREATININE FOR GFR 0.99 MG/DL (0.70-1.30); GLOMERULAR FILTRATION RATE > 60.0 (>49); GLUCOSE, FASTING 110 MG/DL (74-106); LDL CHOLESTEROL 72.6 MG/DL (<100); POTASSIUM SERUM 4.2 MMOL/L (3.5-5.1); PROSTATIC SPECIFIC AG MONITOR 0.04 NG/ML (< 4.00); SODIUM LEVEL 139 MMOL/L (136-145); TOTAL PROTEIN 6.9 G/DL (5.7-8.2); TRIGLYCERIDES LEVEL 107 MG/DL (<150)
[2024-05-24 10:54] LABS: THYROID STIMULATING HORMONE 1.835 uIU/ML (0.55-4.78)
== END ==
LOC: M RAD 09:06
PROVIDERS: ATTEND Family Medicine
DX: I10 Essential (primary) hypertension (principal); R53.83 Other fatigue; R97.20 Elevated prostate specific antigen [PSA]; Z79.01 Long term (current) use of anticoagulants

== ENCOUNTER → 2024-06-07 | Outpatient (CLI) | payer MEDICARE, OTHER ==
[~2024-06-07] MED LIST changes: +CHEL50TA3 PO; +D 101000 PO; +LOSA100T46 PO; +TADA5TAB PO; +TEST200I14 IM
[2024-06-07 10:34] LABS: APPEARANCE, URINE CLEAR (CLEAR); BACTERIA, URINE AUTO NEGATIVE (NEGATIVE); BILIRUBIN, URINE AUTO NEGATIVE (NEGATIVE); BLOOD, URINE BLOOD NEGATIVE (NEGATIVE); COLOR, URINE YELLOW (YELLOW); GLUCOSE, URINE (UA) AUTO NEGATIVE (NEGATIVE); KETONE, URINE AUTO NEGATIVE (NEGATIVE); LEUKOCYTE ESTERASE, URINE AUTO NEGATIVE (NEGATIVE); MUCUS, URINE SMALL (NEGATIVE); NITRITE, URINE AUTO NEGATIVE (NEGATIVE); PROTEIN, URINE AUTO NEGATIVE (NEGATIVE); RBC, URINE AUTO 0 /HPF (0-3); SPECIFIC GRAVITY URINE AUTO 1.015 (1.002-1.035); SQUAMOUS EPITHELIAL CELL UR AU 0 /HPF (0-6); UROBILINOGEN, URINE AUTO 0.2 mg/dL (0.0-2.0); WBC, URINE AUTO 0 /HPF (0-3)
== END ==
LOC: M LAB 08:21
PROVIDERS: ATTEND Family Medicine
DX: Z01.818 Encounter for other preprocedural examination (principal)

== ENCOUNTER 2024-06-29 06:42 | Day surgery (SDC) | payer MEDICARE, OTHER ==
[~2024-06-29] VITALS: Ht 177.8 cm; Wt 129.7 kg
[~2024-06-29 06:42] MED LIST changes: +UNRESOLVED CLARIFICATION ENTRY XX SCH
[2024-06-29] MEDS ORDERED: LR 1,000 ML IV SCH ×2 (06:50→11:30)
[2024-06-29] MEDS ORDERED: fentaNYL 100 MCG/2 ML INJECTION As Ordered ONE (08:12)
[2024-06-29] MEDS ORDERED: LIDOCAINE 2% 100MG/5ML SDV (FOR ANES.) As Ordered ONE (08:12)
[2024-06-29] MEDS ORDERED: ONDANSETRON 4MG 2ML VIAL As Ordered ONE (08:12)
[2024-06-29] MEDS ORDERED: propofoL 200 MG/20 ML VIAL As Ordered ONE (08:12)
[2024-06-29] MEDS ORDERED: MIDAZOLAM INJ 2MG/2ML VIAL As Ordered ONE (08:12)
[2024-06-29] MEDS ORDERED: ACETAMINOPHEN 1000MG 100ML IV BAG As Ordered ONE (08:13)
[2024-06-29] MEDS ORDERED: KETOROLAC 60MG 2ML VIAL As Ordered ONE (08:20)
[2024-06-29] MEDS: ceFAZolin SOD 1 GM in DEXTROSE 5% (D5W) ADV/MINI-BAG 50 ML IV ONE (09:05)
[2024-06-29] MEDS: ceFAZolin SOD 2 GM in IV 1 EA IV ONE (09:05)
[2024-06-29] MEDS: GENTAMICIN SULF 80MG/2ML VIAL As Ordered ONE (09:45)
[2024-06-29] MEDS: GENTAMICIN 400 MG in D5W 50 ML IV ONE (09:50)
[2024-06-29] MEDS: ceFAZolin 1GM VIAL As Ordered ONE (09:55)
[2024-06-29] MEDS ORDERED: PHENYLephrine 500MCG 5ML (100MCG/ML) SYRINGE As Ordered ONE (11:09)
[2024-06-29] MEDS ORDERED: ePHEDrine SULFATE 25 MG/5 ML(5MG/ML) SYRINGE As Ordered ONE (11:09)
[2024-06-29] MEDS ORDERED: ONDANSETRON 4MG 2ML VIAL IV PRN (11:30)
[2024-06-29] MEDS ORDERED: fentaNYL 100 MCG/2 ML INJECTION IV PRN (11:30)
[2024-06-29] MEDS ORDERED: HYDROMORPHONE HCL 0.5 MG/ 0.5 ML SYRINGE IV PRN (11:30)
[2024-06-29] MEDS ORDERED: HYDR-3713 PO (11:35)
[2024-06-29] MEDS ORDERED: CEPH500C PO (11:35)
[2024-06-29] MEDS ORDERED: NYST100085 TOP (11:35)
[2024-06-29] MEDS: oxyCODONE 5MG TAB PO PRN (11:44)
[2024-06-29 12:40] VITALS: BP 155/70; TEMP 97.1; O2SAT 96
== END 2024-06-29 12:44 | disposition home or self-care (01) ==
LOC: M SDC 06:42
PROVIDERS: ATTEND Urology
DX: N52.9 Male erectile dysfunction, unspecified (principal); G47.30 Sleep apnea, unspecified; Z68.37 Body mass index [BMI] 37.0-37.9, adult; Z88.0 Allergy status to penicillin; Z79.899 Other long term (current) drug therapy
CPT/HCPCS: 54405; C1813; J0131; J0690; J1100; J1580; J1885; J2250; J2371; J2405; J3010

== ENCOUNTER → 2024-09-29 | Outpatient (CLI) | payer MEDICARE, OTHER ==
[~2024-09-29] MED LIST changes: +CEPH500C PO; +HYDR-3713 PO; +NYST100085 TOP; -TADA5TAB PO; +TADA5TAB94 PO; -UNRESOLVED CLARIFICATION ENTRY XX SCH
[2024-09-29 10:15] LABS: HEMATOCRIT 47.1 % (42.0-52.0); HEMOGLOBIN 15.9 g/dl (13.5-17.5); MEAN CORPUSCULAR HGB CONC 33.8 g/dl (32.0-36.5); MEAN CORPUSCULAR VOLUME 91.8 fl (80.0-96.0); PLATELET COUNT, AUTOMATED 238 10^3/uL (150-450); RED BLOOD COUNT 5.13 10^6/uL (4.30-6.10); WHITE BLOOD COUNT 8.7 10^3/uL (4.0-10.0)
[2024-09-29 10:48] LABS: PROSTATIC SPECIFIC AG MONITOR 0.04 NG/ML (< 4.00)
[2024-09-29 10:51] LABS: ALBUMIN 3.6 G/DL (3.2-5.2); ALKALINE PHOSPHATASE 71 U/L (40-129); ALT/SGPT 46 U/L (7.0-40); AST/SGOT 24 U/L (<34); BILIRUBIN,TOTAL 0.5 MG/DL (0.3-1.2); BLOOD UREA NITROGEN 21 MG/DL (9-23); CARBON DIOXIDE LEVEL 28 MMOL/L (20-31); CHLORIDE LEVEL 106 MMOL/L (98-107); CHOLESTEROL LEVEL 158 MG/DL (<200); CHOLESTEROL RISK RATIO 3.53 (<5); CREATININE FOR GFR 1.13 MG/DL (0.70-1.30); GLOMERULAR FILTRATION RATE > 60.0 (>49); GLUCOSE, FASTING 99 MG/DL (74-106); HDL CHOLESTEROL 44.7 MG/DL (>40); LDL CHOLESTEROL 74.7 MG/DL (<100); NON-HDL-C 113.3 MG/DL; POTASSIUM SERUM 4.6 MMOL/L (3.5-5.1); SODIUM LEVEL 141 MMOL/L (136-145); TOTAL PROTEIN 6.8 G/DL (5.7-8.2); TRIGLYCERIDES LEVEL 193 MG/DL (<150)
[2024-09-29 10:52] LABS: TESTOSTERONE 420 NG/DL (241-827); THYROID STIMULATING HORMONE 2.318 uIU/ML (0.55-4.78)
[2024-09-29 11:29] LABS: HEMOGLOBIN A1c 5.5 % (4.0-6.0)
== END ==
LOC: M LAB 08:21
PROVIDERS: ATTEND Family Medicine
DX: I10 Essential (primary) hypertension (principal); R97.20 Elevated prostate specific antigen [PSA]

== ENCOUNTER → 2024-11-01 | Outpatient (CLI) | payer MEDICARE, OTHER | LOC: M RAD 14:04 | PROVIDERS: ATTEND Family Medicine | DX: M54.50 Low back pain, unspecified (principal) ==

== ENCOUNTER 2024-12-29 14:02 | Outpatient (RCR) | payer MEDICARE, OTHER ==
[~2024-12-29 14:02] MED LIST changes: +TADA5TAB2 PO; -TADA5TAB94 PO
== END 2025-01-04 ==
LOC: M PT 14:02
PROVIDERS: ATTEND Family Medicine
DX: M54.50 Low back pain, unspecified (principal); M16.0 Bilateral primary osteoarthritis of hip

== ENCOUNTER → 2025-01-10 | Outpatient (CLI) | payer MEDICARE, OTHER | LOC: M RAD 14:15 | PROVIDERS: ATTEND Physical Medicine & Rehabilitation | DX: M47.896 Other spondylosis, lumbar region (principal); M47.897 Other spondylosis, lumbosacral region; M51.362 Other intervertebral disc degeneration, lumbar region with discogenic back pain and lower extremity pain ==

== ENCOUNTER → 2025-08-22 | Outpatient (CLI) | payer MEDICARE, OTHER ==
[~2025-08-22] VITALS: Ht 180.3 cm; Wt 120.2 kg
[~2025-08-22] MED LIST changes: +MIDAZOLAM INJ 2 MG/2 ML VIAL As Ordered ONE; +PROHANCE 279.3MG/ML 15ML VIAL As Ordered ONE; +PROHANCE 279.3MG/ML 5ML VIAL As Ordered ONE
[2025-08-22 11:55] VITALS: TEMP 97.2
[2025-08-22 16:25] VITALS: BP 140/78; O2SAT 95
== END ==
LOC: M RADPRO 11:20
PROVIDERS: ATTEND Physical Medicine & Rehabilitation
DX: M47.27 Other spondylosis with radiculopathy, lumbosacral region (principal)
CPT/HCPCS: 72158; 73723; A9579; J2250